=== PATIENT | female | born 1965 | race Caucasian/White ===

== ENCOUNTER 2017-02-19 11:50 | Day surgery (SDC) | payer OTHER ==
[~2017-02-19] VITALS: Ht 157.5 cm; Wt 53.8 kg
[~2017-02-19 11:50] MED LIST: DOCU-144 PO; NAPR500T8 PO; OMEP20CA16 PO; VITAMINS PO
[2017-02-19 12:44] VITALS: Ht 157.5 cm; Wt 53.8 kg
[2017-02-19 13:30] VITALS: BP 123/73; PULSE 56; RESP 18
--- NOTE | 2017-02-19 14:19 | GILP ---
DATE OF PROCEDURE: 02/19/2017 NAME OF PROCEDURE: Colonoscopy and biopsy. SURGEON: Chaol Camacho MD PREOPERATIVE DIAGNOSIS: Screening colonoscopy. POSTOPERATIVE DIAGNOSES: 1. Colonoscopy all the way to the cecum. 2. Small sigmoid colon polyp was removed using the biopsy forceps. 3. Internal hemorrhoids. INDICATION FOR THE PROCEDURE: Ms. Melanie Garza is a 52-year-old female patient who was scheduled for screening colonoscopy. The procedure and possible complications were well explained to the patient. She understood and con sented to the procedure. DESCRIPTION OF PROCEDURE: Under the influence of fentanyl and Versed, the colonoscope was carefully introduced in the rectum, and under direct vision, it was advanced all the way to the cecum. FINDINGS: The patient had a small sigmoid colon polyp, and it was removed using the biopsy forceps. She was noted to have internal hemorrhoids. She tolerated the procedure very well, and there was no complication from the procedure. At the end of the procedure, she was awake with stable vital signs, and she was discharged home to the care of her family. IMPRESSION: 1. Colonoscopy all the way to the cecum. 2. Small sigmoid colon polyp was removed using the biopsy forceps. 3. Internal hemorrhoids. PLAN: 1. Await histopathology report. 2. Next screening colonoscopy in 10 years. Dictated By: CHALO CARBONE/GRANT Conf#: [id number] DID#: [id number]
[2017-02-19] MEDS ORDERED: MIDAZOLAM 1 MG/ML 2 ML INJ ONE ×3 (14:28)
[2017-02-19] MEDS ORDERED: FENTAnyl 50 MCG/ML VIAL ONE (14:28)
[2017-02-19 14:45] VITALS: BP 109/79; PULSE 52; RESP 20
== END 2017-02-19 15:46 | disposition home or self-care (01) ==
LOC: GIL 11:50
PROVIDERS: ATTEND Internal Medicine Gastroenterology
DX: Z12.11 Encounter for screening for malignant neoplasm of colon (principal); D12.5 Benign neoplasm of sigmoid colon
CPT/HCPCS: 45380; 88305; J2250; J3010; Z7610